=== PATIENT | female | born 1970 | race Caucasian/White ===

== ENCOUNTER 2016-11-18 17:37 | Emergency (ER) | payer BC, OTHER ==
[2016-11-18 18:00] VITALS: BP 147/65
[2016-11-18] MEDS ORDERED: Aspirin 81 MG Tab.Chew PO ONE (18:08)
--- NOTE | 2016-11-18 18:09 | EDM.PDOC ---
<João Ponce - Last Filed: 11/18/16 19:31> ED HPI GENERAL MEDICAL PROBLEM - General Chief Complaint: Neuro Symptoms/Deficits Stated Complaint: [id number] NEROLOGICAL Time Seen by Provider: 11/18/16 17:50 Source of Information: Reports: Patient, Significant Other History Limitations: Reports: No Limitations - History of Present Illness INITIAL COMMENTS - FREE TEXT/NARRATIVE: Today at [facility] at 4:30 pm she suddenly became diaphoretic and felt light headed enough to put her hand against a freezer door. In the ED she feels diaphoretic again and has some discomfort in the left shoulder and arm. Onset: Today, Sudden Duration: Minutes: Quality: Reports: Ache Severity: Mild Improves with: Reports: None Worsens with: Reports: None Context: Reports: Activity, Other (walking at 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) (none) Frontal Headache Pain Score (Numeric/FACES): 3 - Related Data Allergies Allergy/AdvReac Type Severity Reaction Status Date / Time lisinopril AdvReac Mild Cough Verified 01/28/16 06:24 NSAIDS (Non-Steroidal AdvReac Mild Other Verified 01/28/16 06:24 Anti-Inflamma Home Meds: Home Meds Chlorthalidone 50 mg PO DAILY 10/30/13 [History] DULoxetine HCl [Duloxetine HCl] 120 mg PO DAILY 10/30/13 [History] Metoprolol Succinate 75 mg PO DAILY 10/30/13 [History] amLODIPine Besylate [Amlodipine Besylate] 5 mg PO DAILY 10/30/13 [History] Calcium Carbonate [Calcium] 1 tab PO BID 03/03/15 [History] Multivitamin [Multi-Vitamin Daily] 1 tab PO DAILY 03/03/15 [History] Ibuprofen [Motrin] 800 mg PO BIDM PRN #10 tab 08/15/15 [Rx] Metoclopramide [Reglan] 10 mg PO Q8H PRN #10 tablet 08/15/15 [Rx] Acetaminophen/oxyCODONE [Percocet 325-5 MG] 2 tab PO Q4H PRN #0 tablet 01/28/16 [Rx] Cyclobenzaprine [Flexeril] 10 mg PO TID PRN 01/28/16 [History] Morphine 4 mg IVPUSH Q4H PRN #0 syringe 01/28/16 [Rx] Potassium Chloride [Klor-Con Sprinkle] 10 meq PO DAILY 01/28/16 [History] Valsartan 80 mg PO DAILY 01/28/16 [History] Past Medical History Cardiovascular History: Reports: Blood Clots/VTE/DVT, Hypertension Respiratory History: Reports: Sleep Apnea Other Respiratory History: Uses CPAP Gastrointestinal History: Reports: Cholelithiasis Genitourinary History: Reports: Other (See Below) Other Genitourinary History: HX of protein in urine RESEARCH DIETITIAN History: Reports: Dysfunctional Uterine Bleeding Musculoskeletal History: Reports: Arthritis, Osteoarthritis, Other (See Below) Other Musculoskeletal History: current herniated dusc L4-L5 Neurological History: Reports: Migraines Psychiatric History: Reports: Depression Endocrine/Metabolic History: Reports: Obesity/BMI 30+ Hematologic History: Reports: Iron Deficiency Other Hematologic History: Hx of iron deficency Immunologic History: Reports: None Oncologic (Cancer) History: Reports: None Dermatologic History: Reports: None - Infectious Disease History Infectious Disease History: Reports: Chicken Pox - Past Surgical History HEENT Surgical History: Reports: Other (See Below) GI Surgical History: Reports: Cholecystectomy, Other (See Below) Female Surgical History: Reports: D&C, Hysterectomy, Other (See Below) Musculoskeletal Surgical History: Reports: Arthroscopic Knee Social & Family History - Family History Family Medical History: Noncontributory Cardiac: Reports: Heart Failure, Hypertension Musculoskeletal: Reports: Fibromyalgia, Osteoarthritis Psychiatric: Reports: Depression, Other (See Below) Other Psychiatric Family History: addiction issues Endocrine/Metabolic: Reports: Diabetes, type II Oncologic: Reports: Brain, Colon, Prostate, Other (See Below) Other Oncologic Family History: oral CA, urinary system - Tobacco Use Smoking Status *Q: Former Smoker Years of Tobacco use: 5 Packs/Tins Daily: 0.5 Used Tobacco, but Quit: Yes Month Tobacco Last Used: March 2011 Second Hand Smoke Exposure: No - Caffeine Use Caffeine Use: Reports: Coffee - Alcohol Use Days Per Week of Alcohol Use: 0 - Recreational Drug Use Recreational Drug Use: No - Sexual History Sexual History: Reports: Single Partner - Living Situation & Occupation Living situation: Reports: with Significant Other Occupation: Employed ED ROS GENERAL - Review of Systems Review Of Systems: See Below Constitutional: Reports: No Symptoms HEENT: Reports: No Symptoms Respiratory: Reports: No Symptoms Cardiovascular: Reports: Chest Pain, Lightheadedness. Denies: Blood Pressure Problem, Dyspnea on Exertion, Edema, Orthopnea, Palpitations Endocrine: Reports: No Symptoms GI/Abdominal: Reports: No Symptoms Musculoskeletal: Reports: No Symptoms Skin: Reports: No Symptoms Neurological: Denies: Confusion, Dizziness, Headache, Numbness, Paresthesia, Tingling, Difficulty Walking, Weakness, Change in Speech, Gait Disturbance ( lightheaded feeling) ED EXAM, NEURO - Physical Exam Exam: See Below Exam Limited By: No Limitations General Appearance: Alert, WD/WN, No Apparent Distress, Other (morbid obesity) Eye Exam: Bilateral Eye: Normal Inspection Throat/Mouth: Normal Inspection, Normal Lips, Normal Teeth, Normal Gums, Normal Oropharynx, Normal Voice, No Airway Compromise Head Exam: Atraumatic, Normocephalic Neck: Normal Inspection, Supple, Non-Tender, Full Range of Motion Respiratory/Chest: No Respiratory Distress, Lungs Clear, Normal Breath Sounds, No Accessory Muscle Use, Chest Non-Tender Cardiovascular: Normal Peripheral Pulses, Regular Rate, Rhythm, No Edema, No Gallop, No JVD, No Murmur, No Rub GI/Abdominal: Normal Bowel Sounds, Soft, Non-Tender, No Organomegaly, No Distention, No Abnormal Bruit, No Mass Neurological: Alert, Normal Mood/Affect, CN II-XII Intact, No Motor/Sensory Deficits, Oriented x 3 Extremities: Normal Inspection, Normal Range of Motion, Non-Tender, No Pedal Edema, Normal Capillary Refill Psychiatric: Normal Affect Skin Exam: Warm, Dry, Intact, Normal Color, No Rash Course - Vital Signs Last Recorded V/S: Last Vital Signs Temp 36.4 C 11/18/16 17:59 Pulse 66 11/18/16 17:59 Resp 16 11/18/16 17:59 BP 147/65 H 11/18/16 17:59 Pulse Ox 100 11/18/16 17:59 - Orders/Labs/Meds Orders: Active Orders 24 hr Category Date Time Status EKG 12 Lead [EKG Documentation Completion] [RC] STAT Care 11/18/16 18:29 Active CULTURE STREP A CONFIRMATION [RM] Stat Lab 11/18/16 18:58 Results STREP SCRN A RAPID W CULT CONF [RM] Stat Lab 11/18/16 18:58 Results Labs: Laboratory Tests 05/11/18/16 11/18/16 Range/Units 18:34 18:34 18:34 WBC 16.7 H (5.0-10.0) 10^3/uL RBC 4.82 (4.2-5.4) 10^6/uL Hgb 13.4 (12.0-16.0) g/dL Hct 41.2 (37.0-47.0) % MCV 85.5 (80-100) fL MCH 27.8 (27.0-34.0) pg MCHC 32.5 L (33.0-35.0) g/dL Plt Count 252 (150-450) 10^3/uL Neut % (Auto) 76.9 H (42.2-75.2) % Lymph % (Auto) 16.0 L (20.5-50.1) % Lyman % (Auto) 5.3 (2-8) % Eos % (Auto) 1.6 (1.0-3.0) % Baso % (Auto) 0.2 (0.0-1.0) % D-Dimer, Quantitative 105 (0-400) ng/mL Sodium 132 L (135-145) mmol/L Potassium 3.2 L (3.6-5.0) mmol/L Chloride 99 L (101-111) mmol/L Carbon Dioxide 26.0 (21.0-31.0) mmol/L Anion Gap 10.2 BUN 22 H (7-18) mg/dL Creatinine 0.8 (0.6-1.3) mg/dL Est Cr Clr Drug Dosing 93.00 mL/min Estimated GFR (MDRD) > 60 BUN/Creatinine Ratio 27.50 Glucose 97 (74-105) mg/dL Calcium 8.3 L (8.4-10.2) mg/dl Total Bilirubin 0.4 (0.2-1.0) mg/dL AST 18 (10-42) IU/L ALT 18 (10-60) IU/L Alkaline Phosphatase 63 (42-121) IU/L Troponin I < 0.02 (0.00-0.02) ng/ml B-Natriuretic Peptide 20 (0-100) pg/ml Total Protein 7.5 (6.7-8.2) g/dl Albumin 3.7 (3.2-5.5) g/dl Globulin 3.8 Albumin/Globulin Ratio 0.97 Urine Color (YELLOW) Urine Appearance (CLEAR) Urine pH (5.0-9.0) Ur Specific [place] (1.005-1.030) Urine Protein (NEGATIVE) Urine Glucose (UA) (NEGATIVE) Urine Ketones (NEGATIVE) Urine Occult Blood (NEGATIVE) Urine Nitrite (NEGATIVE) Urine Bilirubin (NEGATIVE) Urine Urobilinogen (0.2-1.0) mg/dL Ur Leukocyte Esterase (NEGATIVE) Urine RBC /HPF Urine WBC (0-5/HPF) /HPF Ur Epithelial Cells /HPF 11/18/16 Range/Units 19:25 WBC (5.0-10.0) 10^3/uL RBC (4.2-5.4) 10^6/uL Hgb (12.0-16.0) g/dL Hct (37.0-47.0) % MCV (80-100) fL MCH (27.0-34.0) pg MCHC (33.0-35.0) g/dL Plt Count (150-450) 10^3/uL Neut % (Auto) (42.2-75.2) % Lymph % (Auto) (20.5-50.1) % Lyman % (Auto) (2-8) % Eos % (Auto) (1.0-3.0) % Baso % (Auto) (0.0-1.0) % D-Dimer, Quantitative (0-400) ng/mL Sodium (135-145) mmol/L Potassium (3.6-5.0) mmol/L Chloride (101-111) mmol/L Carbon Dioxide (21.0-31.0) mmol/L Anion Gap BUN (7-18) mg/dL Creatinine (0.6-1.3) mg/dL Est Cr Clr Drug Dosing mL/min Estimated GFR (MDRD) BUN/Creatinine Ratio Glucose (74-105) mg/dL Calcium (8.4-10.2) mg/dl Total Bilirubin (0.2-1.0) mg/dL AST (10-42) IU/L ALT (10-60) IU/L Alkaline Phosphatase (42-121) IU/L Troponin I (0.00-0.02) ng/ml B-Natriuretic Peptide (0-100) pg/ml Total Protein (6.7-8.2) g/dl Albumin (3.2-5.5) g/dl Globulin Albumin/Globulin Ratio Urine Color Yellow (YELLOW) Urine Appearance Clear (CLEAR) Urine pH 6.5 (5.0-9.0) Ur Specific [place] 1.010 (1.005-1.030) Urine Protein Negative (NEGATIVE) Urine Glucose (UA) Negative (NEGATIVE) Urine Ketones Negative (NEGATIVE) Urine Occult Blood Negative (NEGATIVE) Urine Nitrite Negative (NEGATIVE) Urine Bilirubin Negative (NEGATIVE) Urine Urobilinogen 0.2 (0.2-1.0) mg/dL Ur Leukocyte Esterase Negative (NEGATIVE) Urine RBC Not seen /HPF Urine WBC 0-5 (0-5/HPF) /HPF Ur Epithelial Cells Occasional /HPF Meds: Medications Discontinued Medications Generic Name Dose Route Start Last Admin Trade Name Freq PRN Reason Stop Dose Admin Aspirin 324 mg 11/18/16 18:08 11/18/16 18:15 Aspirin PO 11/18/16 18:09 324 mg ONETIME ONE Administration Departure - Departure Disposition: Home, Self-Care 01 Clinical Impression: Dizziness of unknown cause Leukocytosis, unspecified Qualifiers: Leukocytosis type: other Qualified Code(s): D72.828 - Other elevated white blood cell count - Discharge Information Instructions: Near-Syncope, [id number] Forms: ED Department Discharge Additional Instructions: 1) rest tonight 2) repeat WBC in the morning 3) recheck if there is any change or concern - My Orders Last 24 Hours: My Active Orders 11/18/16 18:58 CULTURE STREP A CONFIRMATION [RM] Stat STREP SCRN A RAPID W CULT CONF [RM] Stat - Assessment/Plan Last 24 Hours: My Active Orders 11/18/16 18:58 CULTURE STREP A CONFIRMATION [RM] Stat STREP SCRN A RAPID W CULT CONF [RM] Stat <Chandra Elaine - Last Filed: 11/18/16 20:05> Course - Re-Assessments/Exams Free Text/Narrative Re-Assessment/Exam: 11/18/16 20:03 results discussed with Pt. Departure - Departure Time of Disposition: 20:03 Condition: good
[2016-11-18 19:00] LABS: CHLORIDE,CL 99 mmol/L (101-111); SODIUM,NA 132 mmol/L (135-145)
--- NOTE | 2016-11-20 14:37 | EKG ---
11/18/2016 - DIONI LOUIS I reviewed the EKG and agree with the machine's reading. [facility] /[id number]
== END 2016-11-18 20:09 | disposition home or self-care (01) ==
LOC: DL.ED 17:37
DX: R42 Dizziness and giddiness (principal); D72.828 Other elevated white blood cell count; I10 Essential (primary) hypertension; M19.90 Unspecified osteoarthritis, unspecified site; E66.01 Morbid (severe) obesity due to excess calories; F32.9 Major depressive disorder, single episode, unspecified; Z87.891 Personal history of nicotine dependence; Z79.899 Other long term (current) drug therapy; Z90.49 Acquired absence of other specified parts of digestive tract; Z90.710 Acquired absence of both cervix and uterus; Z88.8 Allergy status to other drugs, medicaments and biological substances; Z68.43 Body mass index [BMI] 50.0-59.9, adult
CPT/HCPCS: 36415; 71020; 80053; 81001; 83880; 84484; 85025; 85379; 87081; 87430; 87804; 93005; 99284; A9270

== ENCOUNTER 2017-08-04 15:35 | Emergency (ER) | payer BC ==
[2017-08-04] MEDS ORDERED: Sodium Chloride 0.9% 10 ML Syringe FLUSH PRN (15:52)
[2017-08-04 16:56] LABS: ANION GAP 16.2; CHLORIDE,CL 102 mmol/L (101-111); SODIUM,NA 137 mmol/L (135-145)
--- NOTE | 2017-08-04 17:29 | EDM.PDOC ---
ED HPI GENERAL MEDICAL PROBLEM - General Chief Complaint: Chest Pain Stated Complaint: pain [id number] Time Seen by Provider: 08/04/17 15:50 Source of Information: Reports: Patient, RN, RN Notes Reviewed History Limitations: Reports: No Limitations - History of Present Illness INITIAL COMMENTS - FREE TEXT/NARRATIVE: Patient presents with chest pain that began at 1500. It radiates to left jaw/ left arm. She took nitro at 1515 and 1530 with no help.States she feels she is going to pass out. She is very anxious and crying. She is scheduled for angiogram tomorrow. Onset: Today Duration: Constant Location: Reports: Chest Quality: Reports: Ache Severity: Severe Improves with: Reports: None Worsens with: Reports: None Associated Symptoms: Reports: No Other Symptoms Chest Pain Score (Numeric/FACES): 8 - Related Data Allergies Allergy/AdvReac Type Severity Reaction Status Date / Time lisinopril AdvReac Mild Cough Verified 08/04/17 16:22 NSAIDS (Non-Steroidal AdvReac Mild Other Verified 08/04/17 16:22 Anti-Inflamma Home Meds: Home Meds Chlorthalidone 50 mg PO DAILY 10/30/13 [History] DULoxetine HCl [Duloxetine HCl] 120 mg PO DAILY 10/30/13 [History] Metoprolol Succinate 100 mg PO DAILY 10/30/13 [History] Multivitamin [Multi-Vitamin Daily] 1 tab PO DAILY 03/03/15 [History] Ibuprofen [Motrin] 800 mg PO BIDM PRN #10 tab 08/15/15 [Rx] Metoclopramide [Reglan] 10 mg PO Q8H PRN #10 tablet 08/15/15 [Rx] Cyclobenzaprine [Flexeril] 10 mg PO TID PRN 01/28/16 [History] Potassium Chloride [Klor-Con Sprinkle] 30 meq PO DAILY 01/28/16 [History] Acetaminophen 1,000 mg PO Q6HR PRN 06/03/17 [History] Biotin 10,000 mcg PO DAILY 06/03/17 [History] Calcium Carbonate/Vitamin D3 [Calcium 600 + Vit D 200] 1 tab PO BID 06/03/17 [ History] Furosemide [Furosemide] 40 mg PO DAILY PRN 06/03/17 [History] L.acidoph,Paracasei, B.lactis [Probiotic] 1 each PO DAILY 06/03/17 [History] Valsartan [Valsartan] 80 mg PO DAILY 06/03/17 [History] traMADol HCl [Ultram] 50 mg PO Q8HR PRN 08/04/17 [History] Past Medical History HEENT History: Reports: Impaired Vision Other HEENT History: wears glasses Cardiovascular History: Reports: Blood Clots/VTE/DVT, Hypertension Respiratory History: Reports: Sleep Apnea Other Respiratory History: Uses CPAP Gastrointestinal History: Reports: Cholelithiasis Genitourinary History: Reports: Other (See Below) Other Genitourinary History: HX of protein in urine 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: Dysfunctional Uterine Bleeding Musculoskeletal History: Reports: Arthritis, Osteoarthritis, Other (See Below) Other Musculoskeletal History: current herniated dusc L4-L5 Neurological History: Reports: Migraines Psychiatric History: Reports: Depression Endocrine/Metabolic History: Reports: Obesity/BMI 30+ Hematologic History: Reports: Iron Deficiency Other Hematologic History: Hx of iron deficency Immunologic History: Reports: None Oncologic (Cancer) History: Reports: None Dermatologic History: Reports: None - Infectious Disease History Infectious Disease History: Reports: Chicken Pox - Past Surgical History Head Surgeries/Procedures: Reports: None GI Surgical History: Reports: Cholecystectomy Female Surgical History: Reports: D&C, Hysterectomy Musculoskeletal Surgical History: Reports: Arthroscopic Knee Social & Family History - Family History Family Medical History: Noncontributory Cardiac: Reports: Heart Failure, Hypertension Musculoskeletal: Reports: Fibromyalgia, Osteoarthritis Psychiatric: Reports: Depression, Other (See Below) Other Psychiatric Family History: addiction issues Endocrine/Metabolic: Reports: Diabetes, type II Oncologic: Reports: Brain, Colon, Prostate, Other (See Below) Other Oncologic Family History: oral CA, urinary system - Tobacco Use Smoking Status *Q: Former Smoker Years of Tobacco use: 10 Packs/Tins Daily: 0.5 Used Tobacco, but Quit: Yes Month Tobacco Last Used: april Second Hand Smoke Exposure: No - Caffeine Use Caffeine Use: Reports: Soda - Alcohol Use Days Per Week of Alcohol Use: 0 - Recreational Drug Use Recreational Drug Use: No - Sexual History Sexual History: Reports: Single Partner - Living Situation & Occupation Living situation: Reports: with Significant Other Occupation: Employed ED ROS GENERAL - Review of Systems Review Of Systems: ROS reveals no pertinent complaints other than HPI. ED EXAM, GENERAL - Physical Exam Exam: See Below Exam Limited By: No Limitations General Appearance: Anxious, Other (diaphoretic) Ears: Normal External Exam, Normal Canal, Hearing Grossly Normal, Normal TMs Nose: Normal Inspection, Normal Mucosa, No Blood Throat/Mouth: Normal Inspection, Normal Lips, Normal Teeth, Normal Gums, Normal Oropharynx, Normal Voice, No Airway Compromise Head: Atraumatic, Normocephalic Neck: Normal Inspection, Supple, Non-Tender, Full Range of Motion Respiratory/Chest: No Respiratory Distress, Lungs Clear, Normal Breath Sounds, No Accessory Muscle Use, Chest Non-Tender Cardiovascular: Other (irregular) GI/Abdominal: Normal Bowel Sounds, Soft, Non-Tender, No Organomegaly, No Distention, No Abnormal Bruit, No Mass (Female) Exam: Deferred Rectal (Female) Exam: Deferred Back Exam: Normal Inspection, Full Range of Motion, NT Extremities: Normal Inspection, Normal Range of Motion, Non-Tender, Normal Capillary Refill, No Pedal Edema Neurological: Alert Psychiatric: Anxious, Other (crying) Skin Exam: Diaphoretic Lymphatic: No Adenopathy EKG INTERPRETATION EKG Date: 08/04/17 Time: 15:52 Rhythm: Other (Sinus rhythm with multifocal PVC's) Rate (Beats/Min): 78 Comparison: Change From Previous EKG Course - Vital Signs Last Recorded V/S: Last Vital Signs Temp 95.8 F 08/04/17 17:45 Pulse 66 08/04/17 17:45 Resp 18 08/04/17 17:45 BP 153/66 H 08/04/17 17:45 Pulse Ox 98 08/04/17 17:45 - Orders/Labs/Meds Labs: Laboratory Tests 08/04/17 08/04/17 08/04/17 Range/Units 16:17 16:17 16:17 WBC 15.5 H (5.0-10.0) 10^3/uL RBC 5.06 (4.2-5.4) 10^6/uL Hgb 13.8 (12.0-16.0) g/dL Hct 42.0 (37.0-47.0) % MCV 83.0 (80-100) fL MCH 27.3 (27.0-34.0) pg MCHC 32.9 L (33.0-35.0) g/dL Plt Count 238 (150-450) 10^3/uL Neut % (Auto) 64.9 (42.2-75.2) % Lymph % (Auto) 26.4 (20.5-50.1) % [place] % (Auto) 6.5 (2-8) % Eos % (Auto) 1.9 (1.0-3.0) % Baso % (Auto) 0.3 (0.0-1.0) % PT 10.1 (9.0-12.0) SEC INR 1.0 (0.9-1.2) Sodium 137 (135-145) mmol/L Potassium 3.2 L (3.6-5.0) mmol/L Chloride 102 (101-111) mmol/L Carbon Dioxide 22.0 (21.0-31.0) mmol/L Anion Gap 16.2 BUN 20 H (7-18) mg/dL Creatinine 1.0 (0.6-1.3) mg/dL Est Cr Clr Drug Dosing 73.59 mL/min Estimated GFR (MDRD) 59 BUN/Creatinine Ratio 20.00 Glucose 96 (74-105) mg/dL Calcium 8.9 (8.4-10.2) mg/dl Total Bilirubin 0.7 (0.2-1.0) mg/dL AST 29 (10-42) IU/L ALT 17 (10-60) IU/L Alkaline Phosphatase 64 (42-121) IU/L Creatine Kinase (26-174) IU/L Creatine Kinase Index (0-2.4) % CK-MB (CK-2) (0.4-4.7) ng/mL Troponin I < 0.02 (0.00-0.02) ng/ml Total Protein 6.7 (6.7-8.2) g/dl Albumin 3.6 (3.2-5.5) g/dl Globulin 3.1 Albumin/Globulin Ratio 1.16 08/04/17 Range/Units 16:17 WBC (5.0-10.0) 10^3/uL RBC (4.2-5.4) 10^6/uL Hgb (12.0-16.0) g/dL Hct (37.0-47.0) % MCV (80-100) fL MCH (27.0-34.0) pg MCHC (33.0-35.0) g/dL Plt Count (150-450) 10^3/uL Neut % (Auto) (42.2-75.2) % Lymph % (Auto) (20.5-50.1) % [place] % (Auto) (2-8) % Eos % (Auto) (1.0-3.0) % Baso % (Auto) (0.0-1.0) % PT (9.0-12.0) SEC INR (0.9-1.2) Sodium (135-145) mmol/L Potassium (3.6-5.0) mmol/L Chloride (101-111) mmol/L Carbon Dioxide (21.0-31.0) mmol/L Anion Gap BUN (7-18) mg/dL Creatinine (0.6-1.3) mg/dL Est Cr Clr Drug Dosing mL/min Estimated GFR (MDRD) BUN/Creatinine Ratio Glucose (74-105) mg/dL Calcium (8.4-10.2) mg/dl Total Bilirubin (0.2-1.0) mg/dL AST (10-42) IU/L ALT (10-60) IU/L Alkaline Phosphatase (42-121) IU/L Creatine Kinase 184 H (26-174) IU/L Creatine Kinase Index 2.8 H (0-2.4) % CK-MB (CK-2) 5.10 H (0.4-4.7) ng/mL Troponin I (0.00-0.02) ng/ml Total Protein (6.7-8.2) g/dl Albumin (3.2-5.5) g/dl Globulin Albumin/Globulin Ratio Meds: Medications Discontinued Medications Generic Name Dose Route Start Last Admin Trade Name Freq PRN Reason Stop Dose Admin Potassium Chloride/Sodium Chloride 1,000 mls @ 100 mls/hr 08/04/17 17:30 17:44 Normal Saline With 20 Meq Kcl IV 100 mls/hr ASDIRECTED PATRICK Administration Sodium Chloride 10 ml 08/04/17 15:52 08/04/17 16:32 Saline Flush FLUSH 10 ml ASDIRECTED PRN Administration Keep Vein Open Departure - Departure Time of Disposition: 17:28 Disposition: DC/Tfer to Acute Hospital 02 Reason for Transfer *Q: Primary PCI Indicated Condition: Fair Clinical Impression: Acute coronary syndrome Referrals: PCP,Unobtain [Primary Care Provider] - Forms: ED Department Discharge, Interfacility Transfer CLAUDIA
[2017-08-04] MEDS ORDERED: NS + KCl 20mEq/L 1,000 ML IV SCH (17:30)
[2017-08-04 18:02] VITALS: BP 153/66
--- NOTE | 2017-08-05 17:21 | EKG ---
08/04/2017 - DIONI LOUIS - FINDINGS: EKG done on a 47-year-old female, showing sinus rhythm, normal axis, heart rate of 78 beats per minute, PVCs noted. Otherwise, no acute ST wave changes. [facility] /[id number]
== END 2017-08-04 17:55 ==
LOC: DL.ED 15:35
DX: I24.9 Acute ischemic heart disease, unspecified (principal); I10 Essential (primary) hypertension; Z88.8 Allergy status to other drugs, medicaments and biological substances; Z88.6 Allergy status to analgesic agent; Z87.891 Personal history of nicotine dependence
CPT/HCPCS: 36415; 71045; 80053; 82550; 82553; 84484; 85025; 85610; 93005; 96374; 99285; J3480; J7050

== ENCOUNTER 2017-10-09 13:43 | Emergency (ER) | payer BC ==
--- NOTE | 2017-10-09 14:10 | EDM.PDOC ---
ED HPI GENERAL MEDICAL PROBLEM - General Chief Complaint: Gastrointestinal Problem Stated Complaint: [id number] GI STOMACH FLU Time Seen by Provider: 10/09/17 14:10 Source of Information: Reports: Patient, Old Records, RN, RN Notes Reviewed History Limitations: Reports: No Limitations - History of Present Illness INITIAL COMMENTS - FREE TEXT/NARRATIVE: Arrives from home by POV with c/o 3 days duration of nausea, vomiting, and diarrhea. Pt felt feverish on the day of onset. Admits to generalized abd. cramping that precedes diarrhea BM's. The diarrhea is yellowish and watery. Denies bloody or black stool or vomiting. Duration: Constant Location: Reports: Abdomen Quality: Reports: Other (cramping) Severity: Moderate Improves with: Reports: None Worsens with: Reports: Eating Context: Reports: Sick Contact Associated Symptoms: Reports: No Other Symptoms Epigastric Pain Score (Numeric/FACES): 4 - Related Data Allergies Allergy/AdvReac Type Severity Reaction Status Date / Time lisinopril AdvReac Mild Cough Verified 08/04/17 16:22 NSAIDS (Non-Steroidal AdvReac Mild Other Verified 08/04/17 16:22 Anti-Inflamma Home Meds: Home Meds Chlorthalidone 50 mg PO DAILY 10/30/13 [History] DULoxetine HCl [Duloxetine HCl] 120 mg PO DAILY 10/30/13 [History] Metoprolol Succinate 100 mg PO DAILY 10/30/13 [History] Multivitamin [Multi-Vitamin Daily] 1 tab PO DAILY 03/03/15 [History] Potassium Chloride [Klor-Con Sprinkle] 40 meq PO DAILY 01/28/16 [History] Acetaminophen 1,000 mg PO Q6HR PRN 06/03/17 [History] Calcium Carbonate/Vitamin D3 [Calcium 600 + Vit D 200] 1 tab PO BID 06/03/17 [ History] Furosemide 40 mg PO DAILY PRN 06/03/17 [History] Valsartan 80 mg PO DAILY 06/03/17 [History] traMADol HCl [Ultram] 50 mg PO Q8HR PRN 08/04/17 [History] Past Medical History HEENT History: Reports: Impaired Vision Other HEENT History: wears glasses Cardiovascular History: Reports: Blood Clots/VTE/DVT, CAD, Hypertension, Other ( See Below) (ACS) Respiratory History: Reports: Sleep Apnea Other Respiratory History: Uses CPAP Gastrointestinal History: Reports: Cholelithiasis Genitourinary History: Reports: Other (See Below) Other Genitourinary History: HX of protein in urine [employer] History: Reports: Dysfunctional Uterine Bleeding Musculoskeletal History: Reports: Arthritis, Osteoarthritis, Other (See Below) Other Musculoskeletal History: current herniated dusc L4-L5 Neurological History: Reports: Migraines Psychiatric History: Reports: Depression Endocrine/Metabolic History: Reports: Obesity/BMI 30+, Other (See Below) ( Hypokalemia) Hematologic History: Reports: Iron Deficiency Other Hematologic History: Hx of iron deficency Immunologic History: Reports: None Oncologic (Cancer) History: Reports: None Dermatologic History: Reports: None - Infectious Disease History Infectious Disease History: Reports: Chicken Pox - Past Surgical History Head Surgeries/Procedures: Reports: None GI Surgical History: Reports: Cholecystectomy Female Surgical History: Reports: D&C, Hysterectomy Musculoskeletal Surgical History: Reports: Arthroscopic Knee Social & Family History - Family History Family Medical History: Noncontributory Cardiac: Reports: Heart Failure, Hypertension Musculoskeletal: Reports: Fibromyalgia, Osteoarthritis Psychiatric: Reports: Depression, Other (See Below) Other Psychiatric Family History: addiction issues Endocrine/Metabolic: Reports: Diabetes, type II Oncologic: Reports: Brain, Colon, Prostate, Other (See Below) Other Oncologic Family History: oral CA, urinary system - Tobacco Use Smoking Status *Q: Former Smoker Years of Tobacco use: 10 Packs/Tins Daily: 0.5 Used Tobacco, but Quit: Yes Month/Year Tobacco Last Used: april Second Hand Smoke Exposure: No - Caffeine Use Caffeine Use: Reports: Soda - Alcohol Use Days Per Week of Alcohol Use: 0 - Recreational Drug Use Recreational Drug Use: No - Sexual History Sexual History: Reports: Single Partner - Living Situation & Occupation Living situation: Reports: with Significant Other Occupation: Employed ED ROS GENERAL - Review of Systems Review Of Systems: ROS reveals no pertinent complaints other than HPI. ED EXAM, GI/ABD - Physical Exam Exam: See Below Exam Limited By: No Limitations General Appearance: Alert, WD/WN, No Apparent Distress, Obese Eyes: Bilateral: Normal Appearance (no scleral icterus) Nose: Normal Inspection Throat/Mouth: Normal Inspection, Normal Lips, Normal Teeth, Normal Gums, Normal Oropharynx, Normal Voice, No Airway Compromise, Other (dry oral membranes) Head: Atraumatic, Normocephalic Neck: Normal Inspection, Supple, Non-Tender, Full Range of Motion Respiratory/Chest: No Respiratory Distress, Lungs Clear, Normal Breath Sounds, No Accessory Muscle Use, Chest Non-Tender Cardiovascular: Normal Peripheral Pulses, Regular Rate, Rhythm, No Edema, No Gallop, No JVD, No Murmur, No Rub GI/Abdominal Exam: Soft, Non-Tender, No Distention, Abnormal Bowel Sounds ( hyperactive), Other (obese abdomen). No: Guarding, Rigid, Rebound (Female) Exam: Deferred Rectal (Female) Exam: Deferred Back Exam: Normal Inspection. No: CVA Tenderness (L), CVA Tenderness (R) Extremities: Normal Inspection, Non-Tender, No Pedal Edema Neurological: Alert, Oriented, CN II-XII Intact, Normal Cognition, Normal Gait, No Motor/Sensory Deficits Psychiatric: Normal Affect, Normal Mood Skin Exam: Warm, Dry, Intact, Normal Color, No Rash Course - Vital Signs Last Recorded V/S: Last Vital Signs Temp 36.0 C 10/09/17 13:52 Pulse 95 10/09/17 13:52 Resp 20 10/09/17 13:52 BP 143/84 H 10/09/17 13:52 Pulse Ox 98 10/09/17 13:52 - Orders/Labs/Meds Orders: Active Orders 24 hr Category Date Time Status Peripheral IV Care [RC] . DIRECTED Care 10/09/17 14:23 Active C DIFFICILE TOXIN BY PCR [MREF] Stat Lab 10/09/17 14:22 Ordered CULTURE STOOL [RM] Stat Lab 10/09/17 14:22 Ordered OCCULT BLOOD DIAGNOSTIC [OP] Stat Lab 10/09/17 14:22 Ordered UA W/MICROSCOPIC [URIN] Stat Lab 10/09/17 15:50 Ordered Potassium Chloride [KCl 10 MEQ in Water 100 ML] 10 meq Med 10/09/17 15:30 Active Premix Bag 1 bag IV ONETIME Sodium Chloride 0.9% [Normal Saline] 1,000 ml Med 10/09/17 15:30 Active IV .BOLUS Sodium Chloride 0.9% [Saline Flush] Med 10/09/17 14:22 Active 10 ml FLUSH ASDIRECTED PRN Peripheral IV Insertion Adult [OM.PC] Stat Oth 10/09/17 14:22 Ordered Medication Orders Potassium Chloride 10 meq/ (Premix) 100 mls @ 100 mls/hr IV ONETIME ONE Stop: 10/09/17 16:29 Last Admin: 10/09/17 15:46 Dose: 100 mls/hr Sodium Chloride (Normal Saline) 1,000 mls @ 999 mls/hr IV .BOLUS ONE Stop: 10/09/17 16:30 Last Admin: 10/09/17 15:45 Dose: 999 mls/hr Sodium Chloride (Saline Flush) 10 ml FLUSH ASDIRECTED PRN PRN Reason: Keep Vein Open Last Admin: 10/09/17 14:37 Dose: 10 ml Labs: Laboratory Tests 10/09/17 10/09/17 10/09/17 Range/Units 14:30 14:30 15:50 WBC 12.5 H (5.0-10.0) 10^3/uL RBC 5.51 H (4.2-5.4) 10^6/uL Hgb 15.4 D (12.0-16.0) g/dL Hct 45.9 (37.0-47.0) % MCV 83.3 (80-100) fL MCH 27.9 (27.0-34.0) pg MCHC 33.6 (33.0-35.0) g/dL Plt Count 217 (150-450) 10^3/uL Neut % (Auto) 78.6 H (42.2-75.2) % Lymph % (Auto) 13.7 L (20.5-50.1) % [place] % (Auto) 7.2 (2-8) % Eos % (Auto) 0.3 L (1.0-3.0) % Baso % (Auto) 0.2 (0.0-1.0) % Sodium 134 L (135-145) mmol/L Potassium 3.2 L (3.6-5.0) mmol/L Chloride 100 L (101-111) mmol/L Carbon Dioxide 23.0 (21.0-31.0) mmol/L Anion Gap 14.2 BUN 21 H (7-18) mg/dL Creatinine 0.9 (0.6-1.3) mg/dL Est Cr Clr Drug Dosing 81.77 mL/min Estimated GFR (MDRD) > 60 BUN/Creatinine Ratio 23.33 Glucose 118 H (74-105) mg/dL Calcium 8.4 (8.4-10.2) mg/dl Magnesium 1.8 (1.8-2.5) mg/dL Total Bilirubin 0.9 (0.2-1.0) mg/dL AST 29 (10-42) IU/L ALT 22 (10-60) IU/L Alkaline Phosphatase 72 (42-121) IU/L Total Protein 7.8 (6.7-8.2) g/dl Albumin 3.8 (3.2-5.5) g/dl Globulin 4.0 Albumin/Globulin Ratio 0.95 Amylase 19 L (28-100) U/L Lipase 16 L (22-51) U/L Urine Color Yellow (YELLOW) Urine Appearance Slightly cloudy (CLEAR) Urine pH 6.5 (5.0-9.0) Ur Specific [place] 1.025 (1.005-1.030) Urine Protein 100 H (NEGATIVE) Urine Glucose (UA) Negative (NEGATIVE) Urine Ketones Negative (NEGATIVE) Urine Occult Blood Trace-intact H (NEGATIVE) Urine Nitrite Negative (NEGATIVE) Urine Bilirubin Small H (NEGATIVE) Urine Urobilinogen 0.2 (0.2-1.0) mg/dL Ur Leukocyte Esterase Negative (NEGATIVE) Meds: Medications Generic Name Dose Route Start Last Admin Trade Name Freq PRN Reason Stop Dose Admin Potassium Chloride 10 meq/ 100 mls @ 100 mls/hr 10/09/17 15:30 10/09/17 15:46 Premix IV 10/09/17 16:29 100 mls/hr ONETIME ONE Administration Sodium Chloride 1,000 mls @ 999 mls/hr 10/09/17 15:30 10/09/17 15:45 Normal Saline IV 10/09/17 16:30 999 mls/hr .BOLUS ONE Administration Sodium Chloride 10 ml 10/09/17 14:22 10/09/17 14:37 Saline Flush FLUSH 10 ml ASDIRECTED PRN Administration Keep Vein Open Discontinued Medications Generic Name Dose Route Start Last Admin Trade Name Freq PRN Reason Stop Dose Admin Sodium Chloride 1,000 mls @ 999 mls/hr 10/09/17 14:24 10/09/17 14:38 Normal Saline IV 10/09/17 15:24 999 mls/hr .BOLUS ONE Administration Lidocaine HCl 1 ml 10/09/17 15:31 10/09/17 15:48 Xylocaine 1% INJECT 10/09/17 15:32 1 ml ONETIME ONE Administration Lidocaine HCl Confirm 10/09/17 15:38 10/09/17 15:48 Xylocaine-Mpf 1% Administered 10/09/17 15:39 30 ml Dose Administration 30 ml .ROUTE .STK-MED ONE Ondansetron HCl 4 mg 10/09/17 14:24 10/09/17 14:38 Zofran IV 10/09/17 14:25 4 mg ONETIME ONE Administration - Re-Assessments/Exams Free Text/Narrative Re-Assessment/Exam: 10/09/17 16:16 I explained the exam findings, results of all diagnostic tests, working diagnosis, and any potential or additionally considered diagnoses, treatment/ disposition plan, self/home care instructions, rational for the diagnosis/ treatment plan/disposition plan, anticipated course of illness, and follow up instructions to the pt and/or pts family or guardian. The pt and/or pts family or guardian acknowledges understanding of the above explanation(s), and of the signs and symptoms which should prompt the return of the pt to the ER should those or any other concerning symptoms develop. Departure - Departure Time of Disposition: 16:13 Disposition: Home, Self-Care 01 Condition: Good Clinical Impression: Gastroenteritis, Diarrhea with dehydration, Hypokalemia - Discharge Information Instructions: Viral Gastroenteritis, Adult, [id number], Hypokalemia, Dehydration, Adult, [id number] Forms: ED Department Discharge Additional Instructions: Rx: Zofran 4mg Rx: Lomotil Clear liquid diet until nausea and vomiting resolve, then advance to soft bland diet as tolerated. Avoid dairy products (yogurt with active cultures is ok), fried or greasy foods , and spicy foods until completely improved. Follow up in clinic if not improving in 3 to 5 days. Return to ER pain becomes severe, you are unable to tolerated clear liquids without vomiting, or if any other emergent symptoms develop. - My Orders Last 24 Hours: My Active Orders 10/09/17 14:22 C DIFFICILE TOXIN BY PCR [MREF] Stat CULTURE STOOL [RM] Stat OCCULT BLOOD DIAGNOSTIC [OP] Stat Sodium Chloride 0.9% [Saline Flush] 10 ml FLUSH ASDIRECTED PRN Peripheral IV Insertion Adult [OM.PC] Stat 10/09/17 14:23 Peripheral IV Care [RC] . DIRECTED 10/09/17 15:30 Potassium Chloride [KCl 10 MEQ in Water 100 ML] 10 meq Premix Bag 1 bag IV ONETIME Sodium Chloride 0.9% [Normal Saline] 1,000 ml IV .BOLUS 10/09/17 15:50 UA W/MICROSCOPIC [URIN] Stat - Assessment/Plan Last 24 Hours: My Active Orders 10/09/17 14:22 C DIFFICILE TOXIN BY PCR [MREF] Stat CULTURE STOOL [RM] Stat OCCULT BLOOD DIAGNOSTIC [OP] Stat Sodium Chloride 0.9% [Saline Flush] 10 ml FLUSH ASDIRECTED PRN Peripheral IV Insertion Adult [OM.PC] Stat 10/09/17 14:23 Peripheral IV Care [RC] . DIRECTED 10/09/17 15:30 Potassium Chloride [KCl 10 MEQ in Water 100 ML] 10 meq Premix Bag 1 bag IV ONETIME Sodium Chloride 0.9% [Normal Saline] 1,000 ml IV .BOLUS 10/09/17 15:50 UA W/MICROSCOPIC [URIN] Stat
[2017-10-09] MEDS ORDERED: Sodium Chloride 0.9% 10 ML Syringe FLUSH PRN (14:22)
[2017-10-09] MEDS ORDERED: Sodium Chloride 0.9% 1,000 ML IV ONE ×2 (14:24→15:30)
[2017-10-09] MEDS ORDERED: Ondansetron 4 MG/2 ML SDV IV ONE (14:24)
[2017-10-09 15:00] LABS: CHLORIDE,CL 100 mmol/L (101-111); SODIUM,NA 134 mmol/L (135-145)
[2017-10-09] MEDS ORDERED: Potassium Chloride 10 MEQ in Premix Bag 1 BAG IV ONE (15:30)
[2017-10-09] MEDS ORDERED: Lidocaine 1% 10 ML MDV INJECT ONE (15:31)
[2017-10-09] MEDS ORDERED: Lidocaine 1% 30 ML SDV ONE (15:38)
[2017-10-09 17:49] VITALS: BP 136/65
== END 2017-10-09 17:53 | disposition home or self-care (01) ==
LOC: DL.ED 13:43
DX: K52.9 Noninfective gastroenteritis and colitis, unspecified (principal); E87.6 Hypokalemia; E66.9 Obesity, unspecified; Z88.8 Allergy status to other drugs, medicaments and biological substances; Z79.899 Other long term (current) drug therapy; Z87.891 Personal history of nicotine dependence
CPT/HCPCS: 36415; 80053; 81001; 82150; 83690; 83735; 85025; 96361; 96365; 96375; 99284; J2405; J3480; J7030; J7050; A9270-GY

== ENCOUNTER 2019-08-09 07:38 | Emergency (ER) | payer BC ==
[2019-08-09 08:03] VITALS: BP 144/88; PULSE 73
--- NOTE | 2019-08-09 08:18 | EDM.PDOC ---
ED HPI GENERAL MEDICAL PROBLEM - General Chief Complaint: Lower Extremity Injury/Pain Stated Complaint: LEFT CALF PAIN Time Seen by Provider: 08/09/19 08:00 Source of Information: Reports: Patient, Old Records, RN, RN Notes Reviewed History Limitations: Reports: No Limitations - History of Present Illness INITIAL COMMENTS - FREE TEXT/NARRATIVE: Pt presents to ER with c/o left calf pain and concern for a DVT. 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 Patient states that she had a DVT about 20 years ago. She is no longer on anticoagulation. She had gastric bypass surgery on and has lost 30lbs. She denies chest pain, shortness of breath, cough, or wheezing. Onset: Gradual Onset Date: 08/08/19 Duration: Constant, Getting Worse Location: Reports: Lower Extremity, Left Quality: Reports: Ache Severity: Moderate Improves with: Reports: Rest Worsens with: Reports: Movement Associated Symptoms: Reports: No Other Symptoms Left Leg Pain Score (Numeric/FACES): 8 - Related Data Allergies Allergy/AdvReac Type Severity Reaction Status Date / Time lisinopril AdvReac Mild Cough Verified 08/09/19 07:57 NSAIDS (Non-Steroidal AdvReac Mild Other Verified 08/09/19 07:57 Anti-Inflamma Home Meds: Home Meds Calcium Carbonate [Calcium] 1 tab PO TID 08/09/19 [History] Cyanocobalamin/Folic AC/Vit B6 [[place]bee] 1 tab PO DAILY 08/09/19 [History] DULoxetine [Cymbalta] 60 mg PO BID 08/09/19 [History] Metoprolol Succinate 50 mg PO BID 08/09/19 [History] Multivit-Min/Iron/Folic Acid/K [Bariatric Mv-Iron 45 mg Cap] 1 tab PO BID [History] Thiamine [Vitamin B-1] 1 tab PO DAILY 08/09/19 [History] Past Medical History HEENT History: Reports: Impaired Vision Other HEENT History: wears glasses Cardiovascular History: Reports: Blood Clots/VTE/DVT, CAD, Hypertension, Other ( See Below) (ACS) Respiratory History: Reports: Sleep Apnea Other Respiratory History: Uses CPAP Gastrointestinal History: Reports: Cholelithiasis Genitourinary History: Reports: Other (See Below) Other Genitourinary History: HX of protein in urine [employer] History: Reports: Dysfunctional Uterine Bleeding Musculoskeletal History: Reports: Arthritis, Osteoarthritis, Other (See Below) Other Musculoskeletal History: current herniated dusc L4-L5 Neurological History: Reports: Migraines Psychiatric History: Reports: Depression Endocrine/Metabolic History: Reports: Obesity/BMI 30+, Other (See Below) ( Hypokalemia) Hematologic History: Reports: Iron Deficiency Other Hematologic History: Hx of iron deficency Immunologic History: Reports: None Oncologic (Cancer) History: Reports: None Dermatologic History: Reports: None - Infectious Disease History Infectious Disease History: Reports: Chicken Pox - Past Surgical History Head Surgeries/Procedures: Reports: None GI Surgical History: Reports: Bariatric Procedure (Gastric bypass 07/14/19), Cholecystectomy Female Surgical History: Reports: D&C, Hysterectomy Musculoskeletal Surgical History: Reports: Arthroscopic Knee Social & Family History - Family History Family Medical History: Noncontributory Cardiac: Reports: Heart Failure, Hypertension Musculoskeletal: Reports: Fibromyalgia, Osteoarthritis Psychiatric: Reports: Depression, Other (See Below) Other Psychiatric Family History: addiction issues Endocrine/Metabolic: Reports: Diabetes, type II Oncologic: Reports: Brain, Colon, Prostate, Other (See Below) Other Oncologic Family History: oral CA, urinary system - Tobacco Use Smoking Status *Q: Never Smoker - Caffeine Use Caffeine Use: Reports: Soda - Recreational Drug Use Recreational Drug Use: No - Sexual History Sexual History: Reports: Single Partner - Living Situation & Occupation Living situation: Reports: with Significant Other Occupation: Employed Review of Systems - Review of Systems Review Of Systems: Comprehensive ROS is negative, except as noted in HPI. ED EXAM, GENERAL - Physical Exam Exam: See Below Exam Limited By: No Limitations General Appearance: Alert, No Apparent Distress, Obese Nose: Normal Inspection Throat/Mouth: Normal Inspection Head: Atraumatic, Normocephalic Neck: Normal Inspection Respiratory/Chest: No Respiratory Distress, Lungs Clear, Normal Breath Sounds, No Accessory Muscle Use, Chest Non-Tender Cardiovascular: Normal Peripheral Pulses, Regular Rate, Rhythm, No Edema GI/Abdominal: Normal Bowel Sounds, Soft, Non-Tender Back Exam: Normal Inspection Extremities: Normal Capillary Refill, Avis's Sign (Left), Leg Pain (Left calf) . No: Joint Swelling, Increased Warmth, Mottled, Pallor, Redness Neurological: Alert, Oriented, CN II-XII Intact, Normal Cognition, Normal Gait, No Motor/Sensory Deficits Psychiatric: Normal Affect, Normal Mood Skin Exam: Warm, Dry, Intact, Normal Color, No Rash Course - Vital Signs Last Recorded V/S: Last Vital Signs Temp 96.8 F 08/09/19 07:40 Pulse 73 08/09/19 07:40 Resp 14 08/09/19 07:40 BP 144/88 H 08/09/19 07:40 Pulse Ox 100 08/09/19 07:40 - Orders/Labs/Meds Orders: Active Orders 24 hr Category Date Time Status Venous Doppler Lwr Ext Lt [US] Timed Exams 08/09/19 07:50 Taken - Radiology Interpretation Free Text/Narrative:: [facility] [place] - [facility] Final Radiology Report Call: [phone] assistance Online chat: [email or web address] Name: DIONI LOUIS Age: 49Years F Date: 08/09/2019 SSN: -- : [id number] Study: US DUPLEX EXTREM VEINS [employer] [facility] Requesting Physician: ZAID LORENZANA Images: 15 Addl Studies: Provided Clinical History: Contrast: Without Contrast Medium: Contrast Amount: Contrast Method: CONFIDENTIALITY STATEMENT This report is intended only for use by the referring physician, and only in accordance with law. If you received this in error, call [phone]. Page 1 of 1 PROCEDURE INFORMATION: Exam: US Duplex Left Lower Extremity Veins, Limited Exam date and time: 08/09/2019 8:28 AM Age: 49 years old Clinical indication: Pain; Leg, lower; Left TECHNIQUE: Imaging protocol: Real-time Duplex ultrasound of the Left Lower Extremity with 2 -D burton scale, color Doppler flow and spectral waveform analysis with image documentation. Limited exam focused on the left lower extremity veins. COMPARISON: No relevant prior studies available. FINDINGS: Left deep veins: Unremarkable. The common femoral, femoral, proximal profunda femoral and popliteal veins are patent without thrombus. Normal Doppler waveforms. Normal compressibility and/or augmentation response. The lower leg veins were reportedly difficult to visualize due to body habitus. Left superficial veins: Unremarkable. Saphenofemoral junction is patent without thrombus. Soft tissues: Unremarkable. IMPRESSION: No deep venous thrombus demonstrated in the left lower extremity. Thank you for allowing us to participate in the care of your patient. Dictated and Authenticated by: Deep Renee MD 08/09/2019 9:11 AM Central Time ([place] & [place]) - Re-Assessments/Exams Free Text/Narrative Re-Assessment/Exam: 08/09/19 08:18 D-dimer is not ordered as pt is post-op <30 days which would result in an unreliable D-dimer level. Departure - Departure Time of Disposition: 09:09 Disposition: Home, Self-Care 01 Condition: Good Clinical Impression: Pain of left calf - Discharge Information *PRESCRIPTION DRUG MONITORING PROGRAM REVIEWED*: Not Applicable *COPY OF PRESCRIPTION DRUG MONITORING REPORT IN PATIENT WANDA: Not Applicable Instructions: Musculoskeletal Pain Forms: ED Department Discharge Additional Instructions: No DVT present. Wear compression stockings. Walk as much as possible. Sepsis Event Note - Evaluation Sepsis Screening Result: No Definite Risk - Focused Exam Vital Signs: Vital Signs Temp Pulse Resp BP Pulse Ox 08/09/19 07:40 96.8 F 73 14 144/88 H 100 Date Exam was Performed: 08/09/19 Time Exam was Performed: 09:09 - My Orders Last 24 Hours: My Active Orders 08/09/19 07:50 Venous Doppler Lwr Ext Lt [US] Timed - Assessment/Plan Last 24 Hours: My Active Orders 08/09/19 07:50 Venous Doppler Lwr Ext Lt [US] Timed
== END 2019-08-09 09:19 | disposition home or self-care (01) ==
LOC: DL.ED 07:38
DX: M79.662 Pain in left lower leg (principal); I25.10 Atherosclerotic heart disease of native coronary artery without angina pectoris; I10 Essential (primary) hypertension; E66.9 Obesity, unspecified; F32.9 Major depressive disorder, single episode, unspecified; Z68.42 Body mass index [BMI] 45.0-49.9, adult; Z86.718 Personal history of other venous thrombosis and embolism; Z88.6 Allergy status to analgesic agent; Z88.8 Allergy status to other drugs, medicaments and biological substances; Z79.899 Other long term (current) drug therapy
CPT/HCPCS: 93971; 99283-25

== ENCOUNTER 2019-12-17 05:27 | Emergency (ER) | payer BC ==
[2019-12-17] MEDS ORDERED: Sodium Chloride 0.9% 1,000 ML IV ONE (05:30)
[2019-12-17] MEDS ORDERED: Ondansetron 4 MG/2 ML SDV IVPUSH ONE (05:31)
[2019-12-17] MEDS ORDERED: 50% Dextrose in Water 50 ML Syringe IVPUSH PRN (05:32)
[2019-12-17 05:45] VITALS: BP 136/58; PULSE 70
[2019-12-17] MEDS ORDERED: Famotidine 20 MG/2 ML SDV IVPUSH ONE (05:50)
--- NOTE | 2019-12-17 05:55 | EDM.PDOC ---
<Alessia Curtis - Last Filed: 12/17/19 06:16> ED HPI GENERAL MEDICAL PROBLEM - General Chief Complaint: Diabetic Complaint Stated Complaint: UNK Time Seen by Provider: 12/17/19 05:35 Source of Information: Reports: Patient History Limitations: Reports: No Limitations - History of Present Illness INITIAL COMMENTS - FREE TEXT/NARRATIVE: ED with nausea, shakiness chills. Recent episode hypoglycemia 21 able to eat cookie and orange juice and glucose up to 90 then weak and pale again. Hx gastric bypass in past 6 months. has few episodes since low blood sugar, nothing this severe or lasting as long, 2 weeks ago dropped to 43. Not on insulin. Recent clinic check last week, CBC BMP and "vitamin levels were all good. Denies travel, No cough, no diarrhea, no chest pain. - Related Data Allergies Allergy/AdvReac Type Severity Reaction Status Date / Time lisinopril AdvReac Mild Cough Verified 08/09/19 07:57 NSAIDS (Non-Steroidal AdvReac Mild Other Verified 08/09/19 07:57 Anti-Inflamma Home Meds: Home Meds Calcium Carbonate [Calcium] 1 tab PO TID 08/09/19 [History] Cyanocobalamin/Folic AC/Vit B6 [Folbee] 1 tab PO DAILY 08/09/19 [History] DULoxetine [Cymbalta] 60 mg PO BID 08/09/19 [History] Metoprolol Succinate 50 mg PO BID 08/09/19 [History] Multivit-Min/Iron/Folic Acid/K [Bariatric Mv-Iron 45 mg Cap] 1 tab PO BID [History] Thiamine [Vitamin B-1] 1 tab PO DAILY 08/09/19 [History] Past Medical History HEENT History: Reports: Impaired Vision Other HEENT History: wears glasses Cardiovascular History: Reports: Blood Clots/VTE/DVT, CAD, Hypertension, Other ( See Below) (ACS) Respiratory History: Reports: Sleep Apnea Other Respiratory History: Uses CPAP Gastrointestinal History: Reports: Cholelithiasis Genitourinary History: Reports: Other (See Below) Other Genitourinary History: HX of protein in urine [employer]GER MACHINE History: Reports: Dysfunctional Uterine Bleeding Musculoskeletal History: Reports: Arthritis, Osteoarthritis, Other (See Below) Other Musculoskeletal History: current herniated dusc L4-L5 Neurological History: Reports: Migraines Psychiatric History: Reports: Depression Endocrine/Metabolic History: Reports: Obesity/BMI 30+, Other (See Below) ( Hypokalemia) Hematologic History: Reports: Iron Deficiency Other Hematologic History: Hx of iron deficency Immunologic History: Reports: None Oncologic (Cancer) History: Reports: None Dermatologic History: Reports: None - Infectious Disease History Infectious Disease History: Reports: Chicken Pox - Past Surgical History Head Surgeries/Procedures: Reports: None GI Surgical History: Reports: Bariatric Procedure (Gastric bypass 07/14/19), Cholecystectomy Female Surgical History: Reports: D&C, Hysterectomy Musculoskeletal Surgical History: Reports: Arthroscopic Knee Social & Family History - Family History Family Medical History: Noncontributory Cardiac: Reports: Heart Failure, Hypertension Musculoskeletal: Reports: Fibromyalgia, Osteoarthritis Psychiatric: Reports: Depression, Other (See Below) Other Psychiatric Family History: addiction issues Endocrine/Metabolic: Reports: Diabetes, type II Oncologic: Reports: Brain, Colon, Prostate, Other (See Below) Other Oncologic Family History: oral CA, urinary system - Caffeine Use Caffeine Use: Reports: Soda - Sexual History Sexual History: Reports: Single Partner - Living Situation & Occupation Living situation: Reports: with Significant Other Occupation: Employed ED ROS GENERAL - Review of Systems Review Of Systems: See Below (2-3# per week.) Constitutional: Reports: Chills, Weakness, Weight Loss HEENT: Reports: No Symptoms Respiratory: Reports: No Symptoms Cardiovascular: Reports: Lightheadedness Endocrine: Reports: Low Glucose GI/Abdominal: Reports: No Symptoms Musculoskeletal: Reports: No Symptoms Skin: Reports: No Symptoms Neurological: Reports: No Symptoms Psychiatric: Reports: No Symptoms Hematologic/Lymphatic: Reports: No Symptoms ED EXAM GENERAL NO PERIP PULSE - Physical Exam Exam: See Below Exam Limited By: No Limitations General Appearance: Alert, Mild Distress, Obese Eye Exam: Bilateral Eye: EOMI Ears: Normal External Exam, Hearing Grossly Normal Nose: Normal Inspection Throat/Mouth: Normal Inspection Head: Atraumatic, Normocephalic Neck: Normal Inspection Respiratory/Chest: No Respiratory Distress Cardiovascular: Normal Peripheral Pulses, Regular Rate, Rhythm GI/Abdominal: Normal Bowel Sounds, Soft, Non-Tender Extremities: Normal Range of Motion Neurological: Alert Psychiatric: Normal Affect Skin Exam: Warm, Dry, Intact, Pallor (extremities, face flushed). No: Rash Course - Vital Signs Last Recorded V/S: Last Vital Signs Temp 96.4 F L 12/17/19 05:34 Pulse 70 12/17/19 05:34 Resp 18 12/17/19 05:34 BP 136/58 L 12/17/19 05:34 Pulse Ox 98 12/17/19 05:34 - Orders/Labs/Meds Orders: Active Orders 24 hr Category Date Time Status Blood Glucose Check, Bedside [] ONETIME Care 12/17/19 05:29 Active EKG 12 Lead [EKG Documentation Completion] [] AM Care 12/17/19 05:29 Active UA RFX LUIZ AND CULT IF INDIC [URIN] Stat Lab 12/17/19 05:29 Ordered Dextrose 50% in Water Med 12/17/19 05:32 Active 50 ml IVPUSH ONETIME PRN Sodium Chloride 0.9% [Normal Saline] 1,000 ml Med 12/17/19 05:30 Active IV .BOLUS Medication Orders Dextrose/Water (Dextrose 50% In Water) 50 ml IVPUSH ONETIME PRN PRN Reason: Blood Glucose Sodium Chloride (Normal Saline) 1,000 mls @ 200 mls/hr IV .BOLUS ONE Stop: 12/17/19 10:29 Last Admin: 12/17/19 05:47 Dose: 200 mls/hr Labs: Laboratory Tests 12/17/19 12/17/19 12/17/19 Range/Units 05:46 05:46 05:46 WBC 13.4 H (5.0-10.0) 10^3/uL RBC 5.04 (4.2-5.4) 10^6/uL Hgb 13.9 (12.0-16.0) g/dL Hct 42.8 (37.0-47.0) % MCV 84.9 (80-100) fL MCH 27.6 (27.0-34.0) pg MCHC 32.5 L (33.0-35.0) g/dL Plt Count 257 (150-450) 10^3/uL Neut % (Auto) 65.6 (42.2-75.2) % Lymph % (Auto) 27.2 (20.5-50.1) % [place] % (Auto) 4.8 (2-8) % Eos % (Auto) 2.2 (1.0-3.0) % Baso % (Auto) 0.2 (0.0-1.0) % D-Dimer, Quantitative (0-400) ng/mL Sodium 144 (136-145) mmol/L Potassium 3.3 L (3.5-5.1) mmol/L Chloride 106 (98-107) mmol/L Carbon Dioxide 24 (21-32) mmol/L Anion Gap 17.3 H (7-13) mEq/L BUN 23 H (7-18) mg/dL Creatinine 1.25 H (0.55-1.02) mg/dL Est Cr Clr Drug Dosing 57.58 mL/min Estimated GFR (MDRD) 45 BUN/Creatinine Ratio 18.4 (No establ ref range) Glucose 130 H (74-99) mg/dL Calcium 8.9 (8.5-10.1) mg/dL Total Bilirubin 0.4 (0.2-1.0) mg/dL AST 16 (15-37) U/L ALT 24 (14-59) U/L Alkaline Phosphatase 100 (46-116) U/L Troponin I < 0.017 (0.000-0.056) ng/mL Total Protein 7.9 (6.4-8.2) g/dL Albumin 3.7 (3.4-5.0) g/dL Globulin 4.2 Albumin/Globulin Ratio 0.9 TSH, Ultra Sensitive 1.63 (0.36-3.74) uIU/mL 12/17/19 Range/Units 05:46 WBC (5.0-10.0) 10^3/uL RBC (4.2-5.4) 10^6/uL Hgb (12.0-16.0) g/dL Hct (37.0-47.0) % MCV (80-100) fL MCH (27.0-34.0) pg MCHC (33.0-35.0) g/dL Plt Count (150-450) 10^3/uL Neut % (Auto) (42.2-75.2) % Lymph % (Auto) (20.5-50.1) % [place] % (Auto) (2-8) % Eos % (Auto) (1.0-3.0) % Baso % (Auto) (0.0-1.0) % D-Dimer, Quantitative < 100 (0-400) ng/mL Sodium (136-145) mmol/L Potassium (3.5-5.1) mmol/L Chloride (98-107) mmol/L Carbon Dioxide (21-32) mmol/L Anion Gap (7-13) mEq/L BUN (7-18) mg/dL Creatinine (0.55-1.02) mg/dL Est Cr Clr Drug Dosing mL/min Estimated GFR (MDRD) BUN/Creatinine Ratio (No establ ref range) Glucose (74-99) mg/dL Calcium (8.5-10.1) mg/dL Total Bilirubin (0.2-1.0) mg/dL AST (15-37) U/L ALT (14-59) U/L Alkaline Phosphatase (46-116) U/L Troponin I (0.000-0.056) ng/mL Total Protein (6.4-8.2) g/dL Albumin (3.4-5.0) g/dL Globulin Albumin/Globulin Ratio TSH, Ultra Sensitive (0.36-3.74) uIU/mL Meds: Medications Generic Name Dose Route Start Last Admin Trade Name Freq PRN Reason Stop Dose Admin Dextrose/Water 50 ml 12/17/19 05:32 Dextrose 50% In Water IVPUSH ONETIME PRN Blood Glucose Sodium Chloride 1,000 mls @ 200 mls/hr 12/17/19 05:30 12/17/19 05:47 Normal Saline IV 12/17/19 10:29 200 mls/hr .BOLUS ONE Administration Discontinued Medications Generic Name Dose Route Start Last Admin Trade Name Freq PRN Reason Stop Dose Admin Famotidine 20 mg 12/17/19 05:50 12/17/19 06:00 Pepcid IVPUSH 12/17/19 05:51 20 mg ONETIME ONE Administration Potassium Chloride 10 meq/ 100 mls @ 100 mls/hr 12/17/19 06:41 12/17/19 06:48 Premix IV 12/17/19 07:40 50 mls/hr ONETIME ONE Administration Ondansetron HCl 4 mg 12/17/19 05:31 12/17/19 05:48 Zofran IVPUSH 12/17/19 05:32 4 mg ONETIME ONE Administration Departure - Departure Disposition: Home, Self-Care 01 Clinical Impression: Hypoglycemia, Hypokalemia, Dehydration - Discharge Information Instructions: Dehydration, Adult, [id number], Hypoglycemia, [id number], Preventing Hypoglycemia, Hypokalemia Forms: ED Department Discharge Additional Instructions: Follow up with your primary care facility Keep Glucose tablets on hand for episodes of hypoglycemia Sepsis Event Note (ED) - Evaluation Sepsis Screening Result: No Definite Risk - Focused Exam Vital Signs: Vital Signs Temp Pulse Resp BP Pulse Ox 12/17/19 05:34 96.4 F L 70 18 136/58 L 98 <Julissa Anderson - Last Filed: 12/17/19 08:13> Departure - Departure Time of Disposition: 08:40 Condition: Good - Discharge Information *PRESCRIPTION DRUG MONITORING PROGRAM REVIEWED*: No *COPY OF PRESCRIPTION DRUG MONITORING REPORT IN PATIENT WANDA: No
[2019-12-17 06:19] LABS: ANION GAP 17.3 mEq/L (7-13); CHLORIDE,CL 106 mmol/L (98-107); SODIUM,NA 144 mmol/L (136-145)
[2019-12-17] MEDS ORDERED: Potassium Chloride 10 MEQ in Premix Bag 1 BAG IV ONE (06:41)
== END 2019-12-17 08:45 | disposition home or self-care (01) ==
LOC: DL.ED 05:27
DX: E16.2 Hypoglycemia, unspecified (principal); E87.6 Hypokalemia; E86.0 Dehydration; F32.9 Major depressive disorder, single episode, unspecified; I25.10 Atherosclerotic heart disease of native coronary artery without angina pectoris; I10 Essential (primary) hypertension; E66.9 Obesity, unspecified; Z68.45 Body mass index [BMI] 70 or greater, adult; Z88.8 Allergy status to other drugs, medicaments and biological substances; Z79.899 Other long term (current) drug therapy
CPT/HCPCS: 36415; 80053; 82962; 84443; 84484; 85025; 85379; 93005; 96361; 96365; 96375; 99285; J2405; J3480; J3490; J7030

== ENCOUNTER 2019-12-25 17:25 | Emergency (ER) | payer BC ==
[2019-12-25] MEDS ORDERED: Cyclobenzaprine 10 MG Tab PO ONE (17:26)
[2019-12-25] MEDS ORDERED: Acetaminophen/HYDROcodone 325-10 MG Tab PO ONE ×2 (17:26→20:03)
--- NOTE | 2019-12-25 20:05 | CT ---
PROCEDURE INFORMATION: Exam: CT Pelvis Without Contrast; Skeletal Exam date and time: 12/25/2019 7:35 PM Age: 49 years old Clinical indication: Other: Fell on left side; Additional info: Fell pain, TECHNIQUE: Imaging protocol: Computed tomography images of the pelvis without contrast. Exam focused on the skeletal structures. Radiation optimization: All CT scans at this facility use at least one of these dose optimization techniques: automated exposure control; mA and/or kV adjustment per patient size (includes targeted exams where dose is matched to clinical indication); or iterative reconstruction. COMPARISON: No relevant prior studies available. FINDINGS: Stomach and bowel: There is a moderate amount of colonic content identified. Intraperitoneal space: No pelvic mass or collection. Bones/joints: Mild degenerative changes both hips with subchondral sclerosis of the acetabuli and moderate marginal osteophytes. There are moderate degenerative changes of the sacroiliac joints. There is no evidence of acute fracture. No CT apparent hip joint effusion. Hypertrophic change at the ischial bones and iliac spines bilaterally. Soft tissues: 2.5 cm high density hematoma in the subcutaneous fat lateral to the left greater trochanter in the left upper lateral thigh. There is surrounding ill-defined soft tissue density in subcutaneous fat suggesting diffuse hematoma/edema. Other findings: Mild hypertrophic change greater trochanters bilaterally. IMPRESSION: 1. Soft tissue abnormality as described lateral to the left greater trochanter. 2. There is no evidence of acute fracture. 3. If occult hip fracture remains clinically suspect consider limited MRI.
--- NOTE | 2019-12-25 20:12 | CT ---
PROCEDURE INFORMATION: Exam: CT Lumbar Spine Without Contrast Exam date and time: 12/25/2019 7:35 PM Age: 49 years old Clinical indication: Other: Fall; Additional info: Fell pain, TECHNIQUE: Imaging protocol: Computed tomography images of the lumbar spine without contrast. Radiation optimization: All CT scans at this facility use at least one of these dose optimization techniques: automated exposure control; mA and/or kV adjustment per patient size (includes targeted exams where dose is matched to clinical indication); or iterative reconstruction. COMPARISON: No relevant prior studies available. FINDINGS: Vertebrae: Near anatomic alignment. The facets are appropriately oriented. The facet joints demonstrate marked degenerative hypertrophy and sclerosis. No posterior arch fracture is seen. There is no evidence of acute fracture. Moderate disc space narrowing L5-S1. Severe disc space narrowing L4-L5. Vacuum disc L4-L5 noted. Marked facet hypertrophy identified D10 D11, T11-T12, and to a lesser extent D12 L1. There may be mild stenosis in the lower dorsal segments. L1-L2: No significant disc protrusion. No severe spinal canal stenosis. No significant neural foraminal narrowing. L2-L3: Mild diffuse bulge.There is no evidence of significant spinal stenosis. L3-L4: Mild diffuse disc bulge. There is no evidence of significant spinal stenosis. L4-L5: Mild broad-based diffuse disc bulge. Small central disc protrusion is touching thecal.There is no evidence of significant spinal stenosis. L5-S1: No compressive lesion seen. Sacrum/coccyx: There are moderate degenerative changes of the sacroiliac joints. Soft tissues: Unremarkable. IMPRESSION: 1. Degenerative changes as described. 2. No fracture or subluxation seen. 3. Other findings as described.
[2019-12-25] MEDS ORDERED: Bacitracin Oint 1 GM U/D Packet TOP ONE (20:21)
[2019-12-25 20:22] VITALS: BP 132/59; PULSE 59
[2019-12-25] MEDS ORDERED: Acetaminophen/HYDROcodone 325-10 MG Tab ONE (20:24)
[2019-12-25] MEDS ORDERED: Cyclobenzaprine 10 MG Tab ONE (20:25)
--- NOTE | 2019-12-25 20:30 | EDM.PDOC ---
ED HPI GENERAL MEDICAL PROBLEM - General Chief Complaint: Back Pain or Injury Stated Complaint: FELL Time Seen by Provider: 12/25/19 19:15 Source of Information: Reports: Patient History Limitations: Reports: No Limitations - History of Present Illness INITIAL COMMENTS - FREE TEXT/NARRATIVE: ED with c/o low back and hip pain, walking into gas station and tripped on crib, fell to left side. assisted up with bystanders. Able to drive herself from [place] to ER here. Pain worse with movement. States Left hip feels like out, Has hard lump on side, Jeans Putting pressure on hip. Did not hit head, scrape to left elbow. Back Pain Score (Numeric/FACES): 8 - Related Data Allergies Allergy/AdvReac Type Severity Reaction Status Date / Time lisinopril AdvReac Mild Cough Verified 12/25/19 17:51 NSAIDS (Non-Steroidal AdvReac Mild Other Verified 12/25/19 17:51 Anti-Inflamma Home Meds: Home Meds Calcium Carbonate [Calcium] 1 tab PO TID 08/09/19 [History] Cyanocobalamin/Folic AC/Vit B6 [Folbee] 1 tab PO DAILY 08/09/19 [History] DULoxetine [Cymbalta] 60 mg PO BID 08/09/19 [History] Metoprolol Succinate 50 mg PO BID 08/09/19 [History] Multivit-Min/Iron/Folic Acid/K [Bariatric Mv-Iron 45 mg Cap] 1 tab PO BID 08/09/19 [History] Thiamine [Vitamin B-1] 1 tab PO DAILY 08/09/19 [History] Mirabegron [Myrbetriq] 25 mg PO DAILY 12/25/19 [History] Past Medical History HEENT History: Reports: Impaired Vision Other HEENT History: wears glasses Cardiovascular History: Reports: Blood Clots/VTE/DVT, CAD, Hypertension, Other (See Below) Respiratory History: Reports: Sleep Apnea Other Respiratory History: Uses CPAP Gastrointestinal History: Reports: Cholelithiasis Genitourinary History: Reports: Other (See Below) Other Genitourinary History: HX of protein in urine [employer]ICE [employer]BS[employer] CHIEF History: Reports: Dysfunctional Uterine Bleeding Musculoskeletal History: Reports: Arthritis, Osteoarthritis, Other (See Below) Other Musculoskeletal History: current herniated dusc L4-L5 Neurological History: Reports: Migraines Psychiatric History: Reports: Depression Endocrine/Metabolic History: Reports: Obesity/BMI 30+, Other (See Below) Hematologic History: Reports: Iron Deficiency Other Hematologic History: Hx of iron deficency Immunologic History: Reports: None Oncologic (Cancer) History: Reports: None Dermatologic History: Reports: None - Infectious Disease History Infectious Disease History: Reports: Chicken Pox - Past Surgical History Head Surgeries/Procedures: Reports: None GI Surgical History: Reports: Bariatric Procedure, Cholecystectomy Female Surgical History: Reports: D&C, Hysterectomy Musculoskeletal Surgical History: Reports: Arthroscopic Knee Social & Family History - Family History Family Medical History: Noncontributory Cardiac: Reports: Heart Failure, Hypertension Musculoskeletal: Reports: Fibromyalgia, Osteoarthritis Psychiatric: Reports: Depression, Other (See Below) Other Psychiatric Family History: addiction issues Endocrine/Metabolic: Reports: Diabetes, type II Oncologic: Reports: Brain, Colon, Prostate, Other (See Below) Other Oncologic Family History: oral CA, urinary system - Tobacco Use Smoking Status *Q: Current Every Day Smoker Years of Tobacco use: 10 Packs/Tins Daily: 0.5 Second Hand Smoke Exposure: No - Caffeine Use Caffeine Use: Reports: Coffee - Recreational Drug Use Recreational Drug Use: No - Sexual History Sexual History: Reports: Single Partner - Living Situation & Occupation Living situation: Reports: with Significant Other Occupation: Employed ED ROS GENERAL - Review of Systems Review Of Systems: Comprehensive ROS is negative, except as noted in HPI. ED EXAM,LOWER BACK PAIN/INJURY - Physical Exam Exam: See Below Exam Limited By: No Limitations General Appearance: Alert, Moderate Distress Eye Exam: Bilateral Eye: EOMI, PERRL Ears: Normal External Exam Nose: Normal Inspection Throat/Mouth: Normal Inspection Head: Atraumatic, Normocephalic Neck: Normal Inspection, Full Range of Motion Respiratory/Chest: No Respiratory Distress, Lungs Clear, Normal Breath Sounds Cardiovascular: Regular Rate, Rhythm GI/Abdominal: Normal Bowel Sounds, Soft Back Exam: Decreased Range of Motion, Paraspinal Tenderness (right lumbar) Extremities: Limited Range of Motion (left hip swelling left hip). No: Leg Pain Neurological: Alert, No Motor/Sensory Deficits, Oriented x 3, Abnormal Gait, Straight Leg Raise (L) Psychiatric: Anxious Skin Exam: Ecchymosis (light bruising left patella), Pallor, Wound/Incision (1x 2cm superficial abrasion left elbow, superficial acrape anterior left foot. ) Course - Vital Signs Last Recorded V/S: Last Vital Signs Temp 98.8 F 12/25/19 20:21 Pulse 59 L 12/25/19 20:21 Resp 18 12/25/19 20:21 BP 132/59 L 12/25/19 20:21 Pulse Ox 100 12/25/19 20:21 - Orders/Labs/Meds Orders: Active Orders 24 hr Category Date Time Status Blood Glucose Check, Bedside [RC] ONETIME Care 12/25/19 19:18 Active Meds: Medications Discontinued Medications Generic Name Dose Route Start Last Admin Trade Name Freq PRN Reason Stop Dose Admin Hydrocodone Bitart/Acetaminophen 1 tab 12/25/19 20:03 12/25/19 20:11 Roper 325-10 Mg PO 12/25/19 20:04 1 tab ONETIME ONE Administration Hydrocodone Bitart/Acetaminophen Confirm 12/25/19 20:24 12/25/19 20:30 Roper 325-10 Mg Administered 12/25/19 20:25 Not Given Dose 2 tab .ROUTE .STK-MED ONE Bacitracin 1 dose 12/25/19 20:21 12/25/19 20:30 Bacitracin Oint 1 Gm TOP 12/25/19 20:22 1 dose ONETIME ONE Administration Cyclobenzaprine HCl Confirm 12/25/19 20:25 12/25/19 20:30 Flexeril Administered 12/25/19 20:26 Not Given Dose 10 mg .ROUTE .STK-MED ONE Orphenadrine Citrate 60 mg 12/25/19 20:03 12/25/19 20:11 Norflex IM 12/25/19 20:04 60 mg ONETIME ONE Administration Departure - Departure Time of Disposition: 20:55 Disposition: Home, Self-Care 01 Condition: Fair Clinical Impression: Abrasion of left elbow, initial encounter Traumatic hematoma of left hip Qualifiers: Encounter type: initial encounter Qualified Code(s): S70.02XA - Contusion of left hip, initial encounter Low back pain Qualifiers: Chronicity: acute Back pain laterality: right Sciatica presence: without sciatica Qualified Code(s): M54.5 - Low back pain Fall Qualifiers: Encounter type: initial encounter Qualified Code(s): W19.XXXA - Unspecified fall, initial encounter Left elbow contusion Qualifiers: Encounter type: initial encounter Qualified Code(s): S50.02XA - Contusion of left elbow, initial encounter - Discharge Information *PRESCRIPTION DRUG MONITORING PROGRAM REVIEWED*: No *COPY OF PRESCRIPTION DRUG MONITORING REPORT IN PATIENT WANDA: No Instructions: Muscle Strain, [id number], Abrasion, [id number] Forms: ED Department Discharge Additional Instructions: flexeril 10mg every 8 hours as needed for muscle spasm norco 10/325 one every 6 hours as needed for severe pain tylenol 650mg every 4 hours as needed mild pain ice to left hip use walker, weight bearing as tolerated clinic follow up on Saturday for recheck monitor blood sugars continue home medications Sepsis Event Note (ED) - Evaluation Sepsis Screening Result: No Definite Risk - Focused Exam Vital Signs: Vital Signs Temp Pulse Resp BP Pulse Ox 12/25/19 20:21 98.8 F 59 L 18 132/59 L 100 12/25/19 17:43 96.5 F L 66 20 145/69 H 100 - My Orders Last 24 Hours: My Active Orders 12/25/19 19:18 Blood Glucose Check, Bedside [RC] ONETIME - Assessment/Plan Last 24 Hours: My Active Orders 12/25/19 19:18 Blood Glucose Check, Bedside [RC] ONETIME
== END 2019-12-25 20:58 | disposition home or self-care (01) ==
LOC: DL.ED 17:25
DX: S70.02XA Contusion of left hip, initial encounter (principal); S50.02XA Contusion of left elbow, initial encounter; M54.5 Low back pain; I25.10 Atherosclerotic heart disease of native coronary artery without angina pectoris; I10 Essential (primary) hypertension; F17.210 Nicotine dependence, cigarettes, uncomplicated; E66.9 Obesity, unspecified; Z68.41 Body mass index [BMI] 40.0-44.9, adult; Z88.8 Allergy status to other drugs, medicaments and biological substances; Z88.6 Allergy status to analgesic agent; Z79.899 Other long term (current) drug therapy; W01.0XXA Fall on same level from slipping, tripping and stumbling without subsequent striking against object, initial encounter
CPT/HCPCS: 72131; 72192; 82962; 96372; 99284; A9270; J2360

== ENCOUNTER 2020-11-21 05:15 | Emergency (ER) | payer BC ==
[2020-11-21] MEDS ORDERED: Sodium Chloride 0.9% 1,000 ML IV ONE (05:24)
[2020-11-21] MEDS ORDERED: Ondansetron 4 MG/2 ML SDV IV ONE (05:24)
[2020-11-21 05:52] LABS: CHLORIDE,CL 105 mmol/L (98-107); SODIUM,NA 143 mmol/L (136-145)
[2020-11-21] MEDS ORDERED: Potassium Chloride 20 MEQ in Premix Bag 1 BAG IV ONE (05:54)
[2020-11-21] MEDS ORDERED: fentaNYL 100 MCG/2 ML SDV IVPUSH ONE (06:03)
--- NOTE | 2020-11-21 06:27 | EDM.PDOC ---
<Julissa Anderson - Last Filed: 11/21/20 06:21> ED HPI GENERAL MEDICAL PROBLEM - General Chief Complaint: Abdominal Pain Stated Complaint: STOMACH PAIN Time Seen by Provider: 11/21/20 05:50 Source of Information: Reports: Patient, RN, RN Notes Reviewed History Limitations: Reports: No Limitations - History of Present Illness INITIAL COMMENTS - FREE TEXT/NARRATIVE: Patient is a 50-year-old female who presents to ER with complaint of nausea and dry heaves, decreased appetite, and diarrhea that began Saturday morning. Patient states she has not eaten anything since Saturday, and very little fluid intake. Patient states since she had gastric bypass she has not been able to vomit, so has had several dry heaving episodes. Patient states she has had many many episodes of diarrhea, diarrhea has now mucousy and orange. Patient has been incontinent of stool in her bed. Patient states she has not urinated since yesterday at noon. Complains of abdominal cramping which she rates approximately a 7/10. Also complains of a headache. Patient states yesterday she did have some body aches and chills. Denies any recent fever, chest pains, shortness of breath. Patient denies any recent antibiotic use, denies history of C. difficile. Patient states she feels very weak and "drained". Onset: Gradual Onset Date: 11/18/20 Abdomen Pain Score (Numeric/FACES): 10 - Related Data Allergies Allergy/AdvReac Type Severity Reaction Status Date / Time lisinopril AdvReac Mild Cough Verified 11/21/20 05:34 NSAIDS (Non-Steroidal AdvReac Mild Other Verified 11/21/20 05:34 Anti-Inflamma Home Meds: Home Meds Calcium Carbonate [Calcium] 1 tab PO TID 08/09/19 [History] Cyanocobalamin/Folic AC/Vit B6 [Folbee] 1 tab PO DAILY 08/09/19 [History] DULoxetine [Cymbalta] 60 mg PO BID 08/09/19 [History] Metoprolol Succinate 50 mg PO BID 08/09/19 [History] Multivit-Min/Iron/Folic Acid/K [Bariatric Mv-Iron 45 mg Cap] 1 tab PO BID 08/09/19 [History] Thiamine [Vitamin B-1] 1 tab PO DAILY 08/09/19 [History] Mirabegron [Myrbetriq] 25 mg PO DAILY 12/25/19 [History] Past Medical History HEENT History: Reports: Impaired Vision Other HEENT History: wears glasses Cardiovascular History: Reports: Blood Clots/VTE/DVT, CAD, Hypertension, Other (See Below) Respiratory History: Reports: Sleep Apnea Other Respiratory History: Uses CPAP Gastrointestinal History: Reports: Cholelithiasis Genitourinary History: Reports: Other (See Below) Other Genitourinary History: HX of protein in urine [employer] History: Reports: Dysfunctional Uterine Bleeding Musculoskeletal History: Reports: Arthritis, Osteoarthritis, Other (See Below) Other Musculoskeletal History: current herniated dusc L4-L5 Neurological History: Reports: Migraines Psychiatric History: Reports: Depression Endocrine/Metabolic History: Reports: Obesity/BMI 30+, Other (See Below) Hematologic History: Reports: Iron Deficiency Other Hematologic History: Hx of iron deficency Immunologic History: Reports: None Oncologic (Cancer) History: Reports: None Dermatologic History: Reports: None - Infectious Disease History Infectious Disease History: Reports: Chicken Pox - Past Surgical History Head Surgeries/Procedures: Reports: None HEENT Surgical History: Reports: Other (See Below) Other HEENT Surgeries/Procedures: Eye surgery as an 6 year old- for crossed eyes. She also wears glasses at present time. GI Surgical History: Reports: Bariatric Procedure, Cholecystectomy Other GI Surgeries/Procedures: gastric bypass Female Surgical History: Reports: D&C, Hysterectomy Other Female Surgeries/Procedures: Hx of mennorhagia Musculoskeletal Surgical History: Reports: Arthroscopic Knee Social & Family History - Family History Family Medical History: No Pertinent Family History Cardiac: Reports: Heart Failure, Hypertension Musculoskeletal: Reports: Fibromyalgia, Osteoarthritis Psychiatric: Reports: Depression, Other (See Below) Other Psychiatric Family History: addiction issues Endocrine/Metabolic: Reports: Diabetes, type II Oncologic: Reports: Brain, Colon, Prostate, Other (See Below) Other Oncologic Family History: oral CA, urinary system - Tobacco Use Tobacco Use Status *Q: Current Some Day Tobacco User Years of Tobacco use: 20 Packs/Tins Daily: 0.1 - Caffeine Use Caffeine Use: Reports: Coffee - Recreational Drug Use Recreational Drug Use: No - Sexual History Sexual History: Reports: Single Partner - Living Situation & Occupation Living situation: Reports: with Significant Other Occupation: Employed ED ROS GENERAL - Review of Systems Review Of Systems: Comprehensive ROS is negative, except as noted in HPI. ED EXAM, GI/ABD - Physical Exam Exam: See Below Exam Limited By: No Limitations General Appearance: Alert, WD/WN, Mild Distress Eyes: Bilateral: Normal Appearance, EOMI Ears: Normal External Exam, Hearing Grossly Normal Nose: Normal Inspection Throat/Mouth: Normal Inspection, Normal Voice, No Airway Compromise Head: Atraumatic, Normocephalic Neck: Normal Inspection, Supple, Non-Tender, Full Range of Motion Respiratory/Chest: No Respiratory Distress, Lungs Clear, Normal Breath Sounds, No Accessory Muscle Use, Chest Non-Tender Cardiovascular: Normal Peripheral Pulses, Regular Rate, Rhythm, No Edema, No Gallop, No JVD, No Murmur, No Rub GI/Abdominal Exam: Normal Bowel Sounds, Soft, Tender (epigastric area) (Female) Exam: Deferred Rectal (Female) Exam: Deferred Back Exam: Normal Inspection, Full Range of Motion, NT Extremities: Normal Inspection, Normal Range of Motion, Non-Tender, Normal Capillary Refill, No Pedal Edema Neurological: Alert, Oriented, CN II-XII Intact, Normal Cognition, Normal Gait, Normal Reflexes, No Motor/Sensory Deficits Psychiatric: Normal Affect, Normal Mood Skin Exam: Warm, Dry, Intact, Normal Color, No Rash Lymphatic: No Adenopathy Departure - Departure Disposition: Home, Self-Care 01 Clinical Impression: Gastroenteritis, Hypokalemia - Discharge Information Instructions: Viral Gastroenteritis, Adult, [id number] Forms: ED Department Discharge Care Plan Goals: The patient was advised of the examination and lab results during the visit. The patient was given IV fluids, IV Potassium and IV Zofran while in the ED. The patient was discharged with a script for Zofran (4 mg) #20 to take 1 by mouth every 6 hours as needed for nausea. The patient was encouraged to stick to a BRAT diet (bananas, rice, applesauce and toast) with small frequent sips of fluid. If the patient has any additional symptoms or concerns, the patient should either return to the emergency department or follow-up with her primary care facility. Sepsis Event Note (ED) - Evaluation Sepsis Screening Result: No Definite Risk <Onur Tolbert - Last Filed: 11/21/20 08:13> Course - Vital Signs Last Recorded V/S: Last Vital Signs Temp 35.5 C L 11/21/20 05:36 Pulse 62 11/21/20 05:36 Resp 19 11/21/20 05:36 BP 149/84 H 11/21/20 05:36 Pulse Ox 100 11/21/20 05:36 - Orders/Labs/Meds Orders: Active Orders 24 hr Category Date Time Status CLOSTRIDIUM DIFFICILE TOX RFLX [MREF] Stat Lab 11/21/20 05:55 Ordered CULTURE BLOOD [BC] Stat Lab 11/21/20 05:30 Results CULTURE STOOL [RM] Stat Lab 11/21/20 05:56 Ordered E COLI STOOL CULT [MREF] Stat Lab 11/21/20 05:56 Ordered UA RFX LUIZ AND CULT IF INDIC [URIN] Stat Lab 11/21/20 05:23 Ordered Blood Culture x2 Reflex Set [OM.PC] Stat Oth 11/21/20 05:24 Ordered Isolation [COMM] Stat Ot 11/21/20 05:56 Active Labs: Laboratory Tests 11/21/20 11/21/20 11/21/20 Range/Units 05:30 05:30 05:30 WBC 8.7 (5.0-10.0) 10^3/uL RBC 5.24 (4.2-5.4) 10^6/uL Hgb 15.1 (12.0-16.0) g/dL Hct 44.8 (37.0-47.0) % MCV 85.5 (80-100) fL MCH 28.8 (27.0-34.0) pg MCHC 33.7 (33.0-35.0) g/dL Plt Count 210 (150-450) 10^3/uL Neut % (Auto) 56.9 (42.2-75.2) % Lymph % (Auto) 28.6 (20.5-50.1) % [place] % (Auto) 10.3 H (2-8) % Eos % (Auto) 3.9 H (1.0-3.0) % Baso % (Auto) 0.3 (0.0-1.0) % Sodium 143 (136-145) mmol/L Potassium 3.0 L (3.5-5.1) mmol/L Chloride 105 (98-107) mmol/L Carbon Dioxide 25 (21-32) mmol/L Anion Gap 16.0 H (7-13) mEq/L BUN 16 (7-18) mg/dL Creatinine 0.84 (0.55-1.02) mg/dL Est Cr Clr Drug Dosing TNP Estimated GFR (MDRD) > 60 BUN/Creatinine Ratio 19.0 (No establ ref range) Glucose 84 (70-99) mg/dL Lactic Acid 0.6 (0.4-2.0) mmol/L Calcium 8.2 L (8.5-10.1) mg/dL Total Bilirubin 0.7 (0.2-1.0) mg/dL AST 26 (15-37) U/L ALT 34 (14-59) U/L Alkaline Phosphatase 84 (46-116) U/L C-Reactive Protein 2.7 H (0.0-0.9) mg/dL Total Protein 6.8 (6.4-8.2) g/dL Albumin 3.3 L (3.4-5.0) g/dL Globulin 3.5 Albumin/Globulin Ratio 0.94 Meds: Medications Discontinued Medications Generic Name Dose Route Start Last Admin Trade Name Jorgeq PRN Reason Stop Dose Admin Fentanyl 50 mcg 11/21/20 06:03 11/21/20 06:31 Fentanyl 100 Mcg/2 Ml Sdv IVPUSH 11/21/20 06:04 50 mcg ONETIME ONE Administration Sodium Chloride 1,000 mls @ 999 mls/hr 11/21/20 05:24 11/21/20 05:31 Normal Saline IV 11/21/20 06:24 999 mls/hr .BOLUS ONE Administration Potassium Chloride 20 meq/ 100 mls @ 50 mls/hr 11/21/20 05:54 11/21/20 06:09 Premix IV 11/21/20 07:53 50 mls/hr ONETIME ONE Administration Ondansetron HCl 4 mg 11/21/20 05:24 11/21/20 05:31 Ondansetron 4 Mg/2 Ml Sdv IV 11/21/20 05:25 4 mg ONETIME ONE Administration - Re-Assessments/Exams Free Text/Narrative Re-Assessment/Exam: 11/21/20 08:08 Patient care was taken over at shift change. The patient reports she is feeling better (headache is gone, abdominal cramping is much improved, nausea is better). The patient was advised that we will finish her IV fluids then allow her to go home. Departure - Departure Time of Disposition: 08:13 Condition: Fair - Discharge Information *PRESCRIPTION DRUG MONITORING PROGRAM REVIEWED*: Not Applicable *COPY OF PRESCRIPTION DRUG MONITORING REPORT IN PATIENT WANDA: Not Applicable Sepsis Event Note (ED) - Focused Exam Vital Signs: Vital Signs Temp Pulse Resp BP Pulse Ox 11/21/20 05:36 35.5 C L 62 19 149/84 H 100
[2020-11-21 08:24] VITALS: BP 123/90; PULSE 58
== END 2020-11-21 09:25 | disposition home or self-care (01) ==
LOC: DL.ED 05:15
DX: K52.9 Noninfective gastroenteritis and colitis, unspecified (principal); E87.6 Hypokalemia; I25.10 Atherosclerotic heart disease of native coronary artery without angina pectoris; I10 Essential (primary) hypertension; E66.9 Obesity, unspecified; Z88.8 Allergy status to other drugs, medicaments and biological substances; Z79.899 Other long term (current) drug therapy; Z72.0 Tobacco use
CPT/HCPCS: 36415; 80053; 83605; 85025; 86140; 87040; 87046; 96365; 96366; 96375; 99283; 99284-25; J2405; J3010; J3480; J7030